=== PATIENT | male | born 1990 | race Caucasian/White ===

== ENCOUNTER → 2019-01-14 | Outpatient (CLI) | payer OTHER ==
--- NOTE | 2019-01-14 14:55 | XR ---
Lumbosacral spine HISTORY: Back pain 5 views of the lumbosacral spine There is no evident spondylolysis or spondylolisthesis. Some mild loss of disc height present at inte rvertebral levels. IMPRESSION: No acute fracture or subluxation. Lumbar MRI may be of benefit.
== END | disposition home or self-care (01) ==
LOC: RADXRMAIN 13:25
PROVIDERS: ATTEND Family Medicine
DX: M54.5 Low back pain (principal)
CPT/HCPCS: 72110